=== PATIENT | male | born 1950 | race Caucasian/White ===

== ENCOUNTER → 2017-02-15 | Outpatient (CLI) | payer BC ==
--- NOTE | 2017-02-15 14:27 | RADRPT ---
PROCEDURE: Right knee radiographs. CLINICAL INDICATION: Right knee pain. TECHNIQUE: Four views. Weight bearing. Frontal, lateral, oblique, and patellar view. COMPARISON: No prior studies are available for comparison. FINDINGS: There is no fracture or dislocation. There is no joint effusion. There are degenerative changes with osteophytes arising from all 3 joint compartment margins. There is chondrocalcinosis. There is no lytic or blastic lesion. There is no radiopaque foreign body. IMPRESSION: 1. Mild degenerative changes. 2. Chondrocalcinosis, likely due to degenerative change. 3. No acute abnormality. RPTAT: QQ .Fabricio Vee MD, MD Date Time Electronically viewed and signed by .Fabricio Vee MD, MD on 02/15/2017 14:27 .R/
== END | disposition home or self-care (01) ==
LOC: HKI 09:03
PROVIDERS: ATTEND Orthopaedic Surgery
DX: M25.561 Pain in right knee (principal); M17.11 Unilateral primary osteoarthritis, right knee
CPT/HCPCS: 20610; 73564; G0463